=== PATIENT | female | born 1960 | race Caucasian/White ===

== ENCOUNTER → 2016-03-14 | Day surgery (SDC) | payer MEDICARE, MEDICAID ==
[2016-03-14] VITALS (9 sets, daily range): BP systolic 87–111; BP diastolic 58–74
[~2016-03-14] VITALS: Ht 165.1 cm; Wt 60.8 kg
[~2016-03-14] MED LIST: CALCIUM500 M2 PO; FANAPT1 MG ORAL; LEXAPRO10 MG ORAL; LR 1000ml ONE; Lidocaine 1% MPF 10mg/ml 5ml ONE; Propofol 10mg/ml 20ml IV ONE; TEMAZEPAM15 MG ORAL; VITAMIN C500 M1 ORAL
--- NOTE | 2016-03-14 09:34 | Pre-Procedure Note/Attestation ---
Pre-Procedure Note/Attestation Complete Prior to Procedure Planned Procedure: not applicable Procedure Narrative: colonoscopy Indications for Procedure Pre-Operative Diagnosis: screening Attestation I attest that I discussed the nature of the procedure; its benefits; risks and complications; and alternatives (and the risks and benefits of such alternatives ), prior to the procedure, with the patient (or the patient's legal admitting representative). I attest that, if there was a reasonable possibility of needing a blood transfusion, the patient (or the patient's legal admitting representative) was given the [facility] standardized written summary, pursuant to the [place] Blood Safety Act ([place] Health and Safety Code # 1645, as amended). I attest that I re-evaluated the patient just prior to the surgery and that there has been no change in the patient's H&P, except as documented below: OSMAN KNOX Mar 14, 2016 09:34
--- NOTE | 2016-03-14 09:35 | Short Stay Surgery H&P ---
History of Present Illness History of Present Illness Chief Complaint screening colon HPI Clarice Agustin is a 55 year old female who was admitted on for Colon Screening Patient History Allergies: Coded Allergies: No Known Allergies (Unverified , 02/16/16) PAST MEDICAL HISTORY: (1) Schizophrenia Past Surgeries: Social History: Medication History Scheduled Ascorbic Acid* (Vitamin C*), 500 MG ORAL DAILY, (Reported) Calcium Carbonate (Calcium), 1,000 MG PO DAILY, (Reported) Escitalopram Oxalate* (Lexapro*), Unknown Dose ORAL DAILY, (Reported) Iloperidone (Fanapt), 1 MG ORAL TWICE A DAY, (Reported) Temazepam (Temazepam*), 15 MG ORAL BEDTIME, (Reported) Review of Systems Cardiovascular: Reports: no symptoms Respiratory: Reports: no symptoms Skeletal: Reports: no symptoms Gastrointestinal: Reports: no symptoms Genitourinary: Reports: no symptoms Neurologic: Reports: no symptoms Endocrine: Reports: no symptoms Hematologic: Reports: no symptoms Physical Exam Skin: normal HENT: normal Heart: normal Lungs: normal Abdomen: normal Extremities: normal Plan Plan of Care colonoscopy Final Diagnosis: Attestation Are the patient's medical conditions optimized for surgery? Attestation Response: yes OSMAN KNOX Mar 14, 2016 09:35
--- NOTE | 2016-03-14 10:08 | Anethesia Preoperative Eval ---
Anesthesia Pre-op PMH/ROS General Date of Evaluation: Mar 14, 2016 Time of Evaluation: 10:06 Anesthesiologist: elina ASA Score: ASA 2 Mallampati Score Class I : Soft palate, uvula, fauces, pillars visible Class II: Soft palate, uvula, fauces visible Class III: Soft palate, base of uvula visible Class IV: Only hard plate visible Mallampati Classification: Class II Surgeon: jose Diagnosis: colon screening Surgical Procedure: colonoscopy Anesthesia History: none Family History: no anesthesia problems Allergies: Coded Allergies: No Known Allergies (Unverified , 02/16/16) Medications: see eMAR Past Medical History Cardiovascular: Denies: CAD, HTN, [place], arrhythmia, other, valve dz Pulmonary: Denies: COPD, ILIANA, asthma, other Gastrointestinal/Genitourinary: Denies: CRI, ESRD, GERD, other Neurologic/Psychiatric: Reports: depression/anxiety, other - schiz, Denies: CVA, TIA, dementia Endocrine: Denies: DM, hypothyroidism, other, steroids HEENT: Denies: [place] (L), [place] (R), cataract (L), cataract (R), glaucoma, other Hematology/Immune: Denies: DVT, anemia, bleeding disorder, other Anesthesia Pre-op Phys. Exam Physician Exam Last Vital Signs Date Time Temp Pulse Resp B/P Pulse Ox O2 Delivery O2 Flow Rate FiO2 03/14/16 09:53 98.1 76 17 92/62 94 Room Air Constitutional: NAD Neurologic: CN 2-12 intact Cardiovascular: RRR Respiratory: CTA Gastrointestinal: S/NT/ND Airway Exam Mallampati Classification 2 Mallampati Score: Class II MO: full Neck: normal ROM: full Dentures: no lower, no upper Anesthesia Pre-op A/P Studies Pre-op Studies: EKG - sr Risk Assessment & Plan Plan: mac Status Change Before Surgery: No Pre-Antibiotics Drug: none ANIKET BLUE CRNA Mar 14, 2016 10:08
--- NOTE | 2016-03-14 10:28 | Endoscopy Procedure Note ---
Endoscopy Procedure Note Indication for Procedure: screening Procedures Performed: colonoscopy Operative Findings/Diagnosis: 3 polyps Specimen: yes Pt Tolerated Procedure Well: Yes Estimated Blood Loss: none Anesthesiologist: floyd Anesthesia: MAC Implant(s) used?: No 50 yrs or older w/o bx or poly: No If not recommended, why?: Above average risk 10 yrs. F/U needed: Yes 18 years or older w/prev. colo: Yes <3yrs. since last colonoscopy: No OSMAN KNOX Mar 14, 2016 10:28
--- NOTE | 2016-03-14 10:41 | Immediate Post-Op Evaluation ---
Immediate Post-Op Evalulation Immediate Post-Op Evalulation Procedure: colonoscopy Date of Evaluation: Mar 14, 2016 Time of Evaluation: 10:40 IV Fluids: 500 Blood Pressure Systolic: 103 Blood Pressure Diastolic: 65 Pulse Rate: 74 O2 Sat by Pulse Oximetry: 100 Nausea: No Vomiting: No Complications none Patient Status: awake, patent Hydration Status: adequate Drug: none ANIKET BLUE CRNA Mar 14, 2016 10:41
--- NOTE | 2016-03-14 11:10 | 48 Hour Post Anesthesia Eval ---
Post Anesthesia Evaluation Procedure: colonoscopy Date of Evaluation: Mar 14, 2016 Time of Evaluation: 11:10 Blood Pressure Systolic: 110 0: 70 Pulse Rate: 69 O2 Sat by Pulse Oximetry: 100 Airway: patent Nausea: No Vomiting: No Hydration Status: adequate Cardiopulmonary Status: normal Mental Status/LOC: patient returned to baseline Post-Anesthesia Complications: none Follow-up care needed: N/A ANIKET BLUE CRNA Mar 14, 2016 11:10
--- NOTE | 2016-03-14 18:18 | Procedure Note ---
DATE OF PROCEDURE: 03/14/2016 SURGEON: Ethan Banerjee M.D. PROCEDURE: Colonoscopy with snare polypectomy and biopsy. ANESTHESIA: Per FIBERGLASS GRINDER, Pilar Tarrillpete. INSTRUMENT: Olympus adult flexible colonoscope. INDICATION: Screening colonoscopy. REASON FOR PROCEDURE: The procedure, risks, benefits, and possible consequences, including hemorrhage, aspiration, perforation and infection, and alternative treatments, were explained to the patient/legal guardian by Dr. Ethan Banerjee and the patient/legal guardian understood and accepted these risks. DESCRIPTION OF PROCEDURE: After informed consent was obtained and the patient was adequately sedated, first rectal exam was performed, which was positive for internal hemorrhoids. Then, the scope was advanced from the rectum into the cecum documented by appendiceal orifice, ileocecal valve, and right upper quadrant palpation. Quality of prep was very good. The patient had total of three polyps on colonoscopy examination. The diminutive polyp in the rectum was removed with the cold biopsy forceps technique. Two polyps in transverse colon both removed with a snare polypectomy technique. Two polyps in the transverse were flat and less than 1 cm, both removed with the snare. Retroflexion of rectum showed evidence of internal hemorrhoids. The patient tolerated the procedure very well without any complication. SUMMARY OF FINDINGS: 1. Three polyps removed. See above for full details. 2. Internal hemorrhoids. RECOMMENDATIONS: 1. Follow up biopsy results and treat accordingly. 2. We recommend repeat colonoscopy in three years given three polyps. Ethan Banerjee M.D. DR: HENOK JOB#: [id number] CC:
--- NOTE | 2016-03-18 15:08 | Cardiology Report ---
APPROVED REPORT EKG Measurement Heart [id number] MA [id number] Normal sinus rhythm Normal ECG
== END | disposition home or self-care (01) ==
LOC: GAS 09:16
DX: Z12.11 Encounter for screening for malignant neoplasm of colon (principal); D12.3 Benign neoplasm of transverse colon; K62.1 Rectal polyp; K64.8 Other hemorrhoids; F20.9 Schizophrenia, unspecified; F32.9 Major depressive disorder, single episode, unspecified; F41.9 Anxiety disorder, unspecified; Z79.899 Other long term (current) drug therapy
CPT/HCPCS: 45380; 45385; 93005; J2704; J7120; 94003; 94150

== ENCOUNTER → 2016-03-29 | Outpatient (CLI) | payer MEDICARE, MEDICAID ==
[~2016-03-29] MED LIST changes: -LR 1000ml ONE; -Lidocaine 1% MPF 10mg/ml 5ml ONE; -Propofol 10mg/ml 20ml IV ONE
--- NOTE | 2016-03-29 14:02 | GI Progress Note ---
Assessment/Plan Problems: (1) Colonic polyp ICD Codes: K63.5 - Polyp of colon SNOMED: 52969811 (2) Internal hemorrhoid ICD Codes: K64.8 - Other hemorrhoids SNOMED: 17825622 (3) Dark stools ICD Codes: R19.5 - Other fecal abnormalities SNOMED: 90392540 Status: stable Status Narrative Seen with Dr. Banerjee. Assessment/Plan ordered CBC, will follow up with patient smoking cessation education given RTC prn repeat colon x 3 years Subjective Gastrointestinal/Abdominal: Reports: no symptoms Subjective c/o of dark stools, denies use of iron supplements or pepto bismo Objective T 97.8 BP 88/56 P 84 95 RA General Appearance: no apparent distress, alert Cardiovascular: normal rate Respiratory/Chest: no respiratory distress, rhonchi - bilaterally Abdominal Exam: normal bowel sounds, non tender, soft Objective Endoscopy Procedure Note Indication for Procedure: screening Procedures Performed: colonoscopy Operative Findings/Diagnosis: 3 polyps OSMAN BANERJEE - Mar 14, 2016 10:28 Evelina Cedillo N.P. Mar 29, 2016 14:02
[2016-03-29 16:08] VITALS: BP 88/56
[2016-03-29 17:34] LABS: BASOPHILS % (AUTO) 0.9 % (0.0-2.0); EOSINOPHILS % (AUTO) 3.1 % (0.0-3.0); MEAN CORPUSCULAR HEMOGLOBIN 31.6 PG (27.0-31.0); MEAN CORPUSCULAR HGB CONC 32.9 G/DL (32.0-36.0); MEAN CORPUSCULAR VOLUME 96 FL (80-99); MEAN PLATELET VOLUME 5.4 FL (6.5-10.1); MONOCYTES % (AUTO) 6.7 % (1.0-10.0); NEUTROPHILS % (AUTO) 57.3 % (45.0-75.0); PLATELET COUNT 246 K/UL (150-450); RED BLOOD COUNT 4.62 M/UL (4.20-5.40); WHITE BLOOD COUNT 8.2 K/UL (4.8-10.8)
== END | disposition home or self-care (01) ==
LOC: PAN 13:07
DX: K63.5 Polyp of colon (principal); K64.8 Other hemorrhoids; R19.5 Other fecal abnormalities
CPT/HCPCS: 36415; 85025; G0463; 99211

== ENCOUNTER 2017-03-07 08:53 | Emergency (ER) | payer MEDICARE, MEDICAID ==
[~2017-03-07] VITALS: Ht 160 cm; Wt 68.0 kg
[2017-03-07] MEDS: Albuterol ud Inhalation HHN ONE ×2 (09:10→09:19)
[2017-03-07 09:20] LABS: APPEARANCE,URINE SLIGHTLY CLOUDY; BILIRUBIN, URINE NEGATIVE (NEGATIVE); COLOR,URINE PALE YELLOW; GLUCOSE, URINE (UA) NEGATIVE (NEGATIVE); KETONES,URINE NEGATIVE (NEGATIVE); LEUKOCYTE ESTERASE ,URINE NEGATIVE (NEGATIVE); NITRITE,URINE NEGATIVE (NEGATIVE); PH,URINE 5 (4.5-8.0); PROTEIN,URINE 2+ (NEGATIVE); UROBILINOGEN,URINE NORMAL MG/DL (0.0-1.0)
--- NOTE | 2017-03-07 09:20 | Emergency Room Report ---
History of Present Illness General Chief Complaint: General Complaint Source: Patient, EMS Present Illness HPI Patient presents via EMS for vomiting and diarrhea. This started yesterday. Unknown if ate something strange. No travel. Room mate is also ill in similar way. No blood or melena. No coffee grounds. Reports some discomfort 2/10, crampy, generalized (denied to RN). No dysuria. Post menopausal. No fevers but feels ill. Denies cough or asthma but smokes. No medications taken. H/O schizophrenia - no SI or HI No chest pain, palpitations, rashes, joint pain, headache. Allergies: Coded Allergies: No Known Allergies (Unverified , 02/16/16) Patient History Past Medical History: see triage record Social History: Reports: smoking Social History Narrative board and care Reviewed Nursing Documentation: PMH: Agreed, PSxH: Agreed Nursing Documentation-PMH Past Medical History: No History, Except For Hx Cardiac Problems: No Hx Cancer: No Hx Gastrointestinal Problems: Yes History Of Psychiatric Problem: Yes Hx Neurological Problems: No Review of Systems All Other Systems: negative except mentioned in HPI Physical Exam Vital Signs Date Time Temp Pulse Resp B/P (MAP) Pulse Ox O2 Delivery O2 Flow Rate FiO2 03/07/17 08:44 97.7 118 20 100/57 99 Room Air Sp02 EP Interpretation: reviewed, normal General Appearance: well appearing, no apparent distress, GCS 15 Head: normocephalic Eyes: bilateral eye normal inspection, bilateral eye PERRL ENT: moist mucus membranes Neck: supple Respiratory: rhonchi, wheezing, expiration Cardiovascular #1: regular rate, rhythm Cardiovascular #2: 2+ radial (R) Gastrointestinal: normal inspection, normal bowel sounds, non tender, soft, no mass, non-distended Musculoskeletal: back normal, gait/station normal, normal range of motion Neurologic: alert, oriented x3, grossly normal Psychiatric: mood/affect normal, no suicidal/homicidal ideation Skin: normal inspection, warm/dry Medical Decision Making Diagnostic Impression: Primary Impression: Nausea vomiting and diarrhea Additional Impressions: Schizophrenia Qualified Codes: F20.9 - Schizophrenia, unspecified Bronchospasm Tobacco abuse ER Course Patient with vomiting and diarrhea. Also wheezing. DDx: GItis, food poisoning , diverticulitis, UTI amongst others. Evaluation with labs. Planned tx with IV hydration, zofran, consideration of analgesia. Also albuterol indicated. Suggested infectious etiology as roommate also ill. Patient initially agreed to w/u. When resp present, she refused. Also refused IV and labs. (Several discussions with patient with her agreeing then refusing. ) Zofran ordered and taken. Improved. Tolerating PO fluids. Advised that w/u had been refused. Also discussed lung findings. If patient changed mind, to return for further evaluation. Patient stable for outpatient observation and treatment. Laboratory Tests Test 03/07/17 09:00 Urine Color Pale yellow Urine Appearance Slightly cloudy Urine pH 5 (4.5-8.0) Urine Specific [place] 1.020 (1.005-1.035) Urine Protein 2+ (NEGATIVE) H Urine Glucose (UA) Negative (NEGATIVE) Urine Ketones Negative (NEGATIVE) Urine Occult Blood 2+ (NEGATIVE) H Urine Nitrite Negative (NEGATIVE) Urine Bilirubin Negative (NEGATIVE) Urine Urobilinogen Normal MG/DL (0.0-1.0) Urine Leukocyte Esterase Negative (NEGATIVE) Urine RBC 2-4 /HPF (0 - 2) H Urine WBC 0-2 /HPF (0 - 2) Urine Squamous Epithelial Cells Few /LPF (NONE/OCC) Urine Bacteria Few /HPF (NONE) Last Vital Signs Date Time Temp Pulse Resp B/P (MAP) Pulse Ox O2 Delivery O2 Flow Rate FiO2 03/07/17 11:10 97.9 96 18 109/62 97 Room Air Status: improved Disposition: ASSISTED LIVING Condition: Improved Scripts Ondansetron Odt* (ZOFRAN ODT*) 4 Mg Tab.rapdis 4 MG ORAL Q8H Y for Nausea & Vomiting, #6 TAB 0 Refills Prov: Cliff Bowie M.D. 03/07/17 Cliff Bowie M.D. Mar 07, 2017 09:20
[2017-03-07] MEDS ORDERED: ZOFRAN ODT4 MG ORAL (11:00)
[2017-03-07 11:10] VITALS: BP 109/62
== END 2017-03-07 11:10 | disposition home or self-care (01) ==
LOC: EDBD 08:53 → EMR 11:00
DX: R11.2 Nausea with vomiting, unspecified (principal); F20.9 Schizophrenia, unspecified; J98.01 Acute bronchospasm; F17.200 Nicotine dependence, unspecified, uncomplicated
CPT/HCPCS: 81003; 94640; 94664; 96361; 96374; 99284; J2405

== ENCOUNTER → 2017-10-07 | Outpatient (CLI) | payer MEDICARE, MEDICAID ==
[~2017-10-07] MED LIST changes: +ZOFRAN ODT4 MG ORAL
--- NOTE | 2017-10-08 14:15 | Diagnostic Imaging Report ---
Indication: 56-year-old female with history of neck trauma, pain and difficulty swallowing. Technique: MRI the neck performed utilizing a multiplanar, multisequence acquisition. Following sequences were obtained: 3 plane localizer, sagittal T2 FSE, coronal T2 fat sat, coronal T2 STIR, coronal T1 FSE, axial T2 STIR, axial T1 FSE, axial T1 fat-sat. Axial and coronal T1 fat sat images were also obtained after the administration of IV gadolinium. Comparison: None Findings: Please note that the exam is degraded by patient motion. Within these limitations: No definite focal mass lesion is appreciated. The soft tissues of the neck appear symmetric bilaterally. The airway is patent. No obvious abnormality is noted in the nasopharynx. Piriform sinuses are not effaced. No definite focus of abnormal postcontrast enhancement. There is mild mucosal thickening in some ethmoid air cells. The remainder of the paranasal sinuses as well as the mastoid air cells are clear. Imaged portions of the brain grossly unremarkable. There is mild degenerative change of the cervical spine most pronounced at C6-C7 or there is mild associated central canal narrowing. No definite cord signal abnormality is identified. Some rounded densities are noted in the lung apices only on sagittal views which are likely artifactual in etiology. Correlation with a chest radiograph to exclude pathology in these regions. No acute osseous abnormality identified. IMPRESSION: Patient motion significantly degrades exam. No obvious mass or definite focus of abnormal postcontrast enhancement identified however, given limitations, subtle abnormalities can be missed. Recommend further evaluation with contrast-enhanced CT scan of the soft tissues of the neck. Very mild ethmoid sinus disease. Rounded opacities in the lung apices seen only on sagittal views likely artifactual. Chest radiograph would provide better evaluation.
== END | disposition home or self-care (01) ==
LOC: MRI 08:55
DX: S19.9XXA Unspecified injury of neck, initial encounter (principal); X58.XXXA Exposure to other specified factors, initial encounter; Y92.9 Unspecified place or not applicable
CPT/HCPCS: 70543; A9585

== ENCOUNTER 2018-06-23 12:50 | Outpatient (CLI) | payer MEDICARE, MEDICAID ==
--- NOTE | 2018-06-23 13:42 | General Progress Note ---
Assessment/Plan Problem List: (1) Rectal bleed ICD Codes: K62.5 - Hemorrhage of anus and rectum SNOMED: 56953363 (2) Schizophrenia ICD Codes: F20.9 - Schizophrenia, unspecified SNOMED: 28640108 (3) Internal hemorrhoid ICD Codes: K64.8 - Other hemorrhoids SNOMED: 03353851 (4) Colonic polyp ICD Codes: K63.5 - Polyp of colon SNOMED: 20213982 Assessment/Plan recent ER visit trial of colace, miralax, anusol HC RTC in 2 weeks plan colonoscopy if still bleeding O/W plan colonoscopy in Subjective ROS Limited/Unobtainable: Yes Allergies: Coded Allergies: No Known Allergies (Unverified , 02/16/16) Objective General Appearance: alert EENT: normal ENT inspection Neck: supple Cardiovascular: normal rate Respiratory/Chest: lungs clear Abdomen: normal bowel sounds, non tender, soft Extremities: non-tender Ethan Banerjee MD Jun 23, 2018 13:42
[2018-06-23 14:35] VITALS: BP 99/66
== END 2018-06-23 15:47 | disposition home or self-care (01) ==
LOC: PAN 12:50
DX: K62.5 Hemorrhage of anus and rectum (principal); F20.9 Schizophrenia, unspecified; K64.8 Other hemorrhoids; K63.5 Polyp of colon
CPT/HCPCS: 99212

== ENCOUNTER 2018-07-07 12:58 | Outpatient (CLI) | payer MEDICARE, MEDICAID ==
--- NOTE | 2018-07-07 13:45 | General Progress Note ---
Assessment/Plan Problem List: (1) Dark stools ICD Codes: R19.5 - Other fecal abnormalities SNOMED: 16104974 (2) Tobacco abuse ICD Codes: Z72.0 - Tobacco use; R19.7 - Diarrhea, unspecified SNOMED: 060754132, 99273246 (3) Colonic polyp ICD Codes: K63.5 - Polyp of colon SNOMED: 50933271 (4) Schizophrenia ICD Codes: F20.9 - Schizophrenia, unspecified SNOMED: 66922426 (5) Rectal bleed ICD Codes: K62.5 - Hemorrhage of anus and rectum SNOMED: 19707027 (6) Internal hemorrhoid ICD Codes: K64.8 - Other hemorrhoids SNOMED: 93353830 Assessment/Plan: off of laxatives no recurrent bleed plan colonoscopy 03/2019 Subjective ROS Limited/Unobtainable: Yes Allergies: Coded Allergies: No Known Allergies (Unverified , 02/16/16) Objective General Appearance: alert EENT: normal ENT inspection Neck: supple Cardiovascular: normal rate Respiratory/Chest: lungs clear Abdomen: normal bowel sounds, non tender, soft Extremities: non-tender Ethan Banerjee MD Jul 07, 2018 13:45
== END 2018-07-07 16:10 | disposition home or self-care (01) ==
LOC: PAN 12:58
DX: R19.5 Other fecal abnormalities (principal); Z72.0 Tobacco use; R19.7 Diarrhea, unspecified; K63.5 Polyp of colon; F20.9 Schizophrenia, unspecified; K62.5 Hemorrhage of anus and rectum; K64.8 Other hemorrhoids
CPT/HCPCS: 99212